=== PATIENT | male | born 1970 | race Caucasian/White ===

== ENCOUNTER 2024-09-21 08:55 | Emergency (ER) | payer MEDICARE, BC ==
--- NOTE | 2024-09-21 09:34 | ED ---
General Adult HPI - General Chief complaint: Abdominal Pain Stated complaint: Chest/abd pain Time Seen by Provider: 09/21/24 09:20 Source: patient, RN notes reviewed Mode of arrival: ambulatory Limitations: no limitations - History of Present Illness Initial comments: 54-year-old with history of MS presents to the emergency department for evaluation of abdominal pain. The patient reports he started experiencing epigastric abdominal pain 3 to 4 days ago. He notes that he has not had a bowel movement in 4 days and has attempted MiraLAX and enemas at home without success. He admits to nausea without vomiting. Denies prior abdominal surgeries. Goyo cummins has a history of multiple sclerosis. - Related Data Home Medications Medication Instructions Recorded Confirmed Aspirin EC [Ecotrin Low Dose] 81 mg PO DAILY 09/21/24 09/21/24 Baclofen [Lioresal] 10 mg PO BID@0900,1500 09/21/24 09/21/24 Baclofen [Lioresal] 20 mg PO HS 09/21/24 09/21/24 Cholecalciferol [Vitamin D3 (125 125 mcg PO DAILY 09/21/24 09/21/24 Mcg = 5000 Iu)] Dalfampridine [Dalfampridine ER] 10 mg PO BID 09/21/24 09/21/24 Dextroamphetamine/Amphetamine 15 mg PO DAILY 09/21/24 09/21/24 [Adderall] Gabapentin [Neurontin] 300 mg PO TID 09/21/24 09/21/24 Mirabegron [Myrbetriq] 50 mg PO DIRECTED 09/21/24 09/21/24 Multivitamins, Thera [Multivitamin 1 tab PO DAILY 09/21/24 09/21/24 (formulary)] Issue-3/Dha/Epa/Fish Oil [Fish Oil 1 cap PO DAILY 09/21/24 09/21/24 1,000 mg Softgel] Vitamin B Complex 1 cap PO DAILY 09/21/24 09/21/24 buPROPion XL [Wellbutrin XL] 150 mg PO DAILY 09/21/24 09/21/24 diazePAM [Valium] 5 mg PO HS PRN 09/21/24 09/21/24 valACYclovir HCL [Valtrex] 500 mg PO DAILY 09/21/24 09/21/24 Allergies Allergy/AdvReac Type Severity Reaction Status Date / Time No Known Allergies Allergy Verified 09/21/24 09:12 Review of Systems ROS Statement: Those systems with pertinent positive or pertinent negative responses have been documented in the HPI. ROS Other: All systems not noted in ROS Statement are negative. Past Medical History Past Medical History: Neurologic Disorder Additional Past Medical History / Comment(s): History of Any Multi-Drug Resistant Organisms: None Reported Past Surgical History: No Surgical Hx Reported Past Psychological History: No Psychological Hx Reported Smoking Status: Never smoker Past Alcohol Use History: None Reported Past Drug Use History: None Reported General Exam - General Exam Comments Initial Comments: Visual Physical Exam Vital signs reviewed General: Well-appearing, nontoxic, no acute distress. Head: Normocephalic, atraumatic Eyes: PERRLA, EOMI ENT: Airway patent Chest: Nonlabored breathing Skin: No visual rash, normal skin tone Neuro: Alert and oriented 3 Musculoskeletal: No gross abnormalities Limitations: no limitations General appearance: alert, in no apparent distress Head exam: Present: atraumatic, normocephalic, normal inspection Eye exam: Present: normal appearance, PERRL, EOMI. Absent: scleral icterus, conjunctival injection, periorbital swelling ENT exam: Present: normal exam, mucous membranes moist Neck exam: Present: normal inspection. Absent: tenderness, meningismus, l ymphadenopathy Respiratory exam: Present: normal lung sounds bilaterally. Absent: respiratory distress, wheezes, rales, rhonchi, stridor Cardiovascular Exam: Present: regular rate, normal rhythm, normal heart sounds. Absent: systolic murmur, diastolic murmur, rubs, gallop, clicks GI/Abdominal exam: Present: tenderness, hypoactive bowel sounds. Absent: distended Extremities exam: Present: normal inspection, full ROM, normal capillary refill. Absent: tenderness, pedal edema, joint swelling, calf tenderness Neurological exam: Present: alert, oriented X3 Psychiatric exam: Present: normal affect, normal mood Skin exam: Present: warm, dry, intact, other (Mild jaundice). Absent: normal color Course Vital Signs 09/21/24 09/21/24 09/21/24 09:10 10:26 14:39 Temperature 98.2 F 98.1 F 98.9 F Pulse Rate 90 81 85 Respiratory 20 18 18 Rate Blood Pressure 135/87 133/82 128/81 O2 Sat by Pulse 99 98 97 Oximetry Medical Decision Making - Medical Decision Making Quick note preformed and electronically signed by ISHMAEL March-C Was pt. sent in by a medical professional or institution (ISHMAEL Gonzales, [employer], urgent care, hospital, or [place] health care facility...) When possible be specific @ -No Did you speak to anyone other than the patient for history (EMS, parent, family, police, friend...)? What history was obtained from this source @ -No Did you review nursing and triage notes (agree or disagree)? Why? @ -I reviewed and agree with nursing and triage notes Were old charts reviewed (outside hosp., previous admission, EMS record, old EKG, old radiological studies, urgent care reports/EKG's, [place] health care facility records)? Report findings @ -No old charts were reviewed Differential Diagnosis (chest pain, altered mental status, abdominal pain women, abdominal pain men, vaginal bleeding, weakness, fever, dyspnea, syncope, headache, dizziness, GI bleed, back pain, seizure, CVA, palpatations, mental health, musculoskeletal)? @ -Differential Abdominal Pain Men: Appendicitis, cholecystitis, diverticulosis, ischemic bowel, pancreatitis, hepatitis, UTI, gastroenteritis, AAA, incarcerated hernia, bowel obstruction, constipation, inflammatory bowel, hepatitis, peptic ulcer disease, splenic infarction, perforated viscus, testicular torsion, this is not meant to be an all-inclusive list EKG interpreted by me (3pts min.). @ -EKG at 1032 shows sinus rhythm rate 66, RI 160, QRS 88, QT/QTc [id number] X-rays interpreted by me (1pt min.). @ -None done CT interpreted by me (1pt min.). @ -CT abdomen pelvis shows Evidence of acute cholecystitis with thickening of the gallbladder wall and hyperemia/thickening of the biliary duct lira which raise concern for ascending cholangitis, no evidence of choledocholithiasis; pancreatic lipomatosis versus fat stranding around the pancreas U/S interpreted by me (1pt. min.). @ -None done What testing was considered but not performed or refused? (CT, X-rays, U/S, labs)? Why? @ -None What meds were considered but not given or refused? Why? @ -None Did you discuss the management of the patient with other professionals (professionals i.e. Dr., PA, [employer], lab, RT, psych nurse, forensic social worker, diesel locomotive firer/fireman, teacher, upscale security officer, case preparer and liner)? Give summary @ -Case discussed with [facility] transfer center, declined the transfer Case was discussed with [facility] transfer center and ER physician Dr. Caldera who is accepting of the transfer. Was smoking cessation discussed for >3mins.? @ -No Was critical care preformed (if so, how long)? @ -No Were there social determinants of health that impacted care today? How? (Homelessness, low income, unemployed, alcoholism, drug addiction, transportation, low edu. Level, literacy, decrease access to med. care, intermediate, rehab)? @ -No Was there de-escalation of care discussed even if they declined (Discuss DNR or withdrawal of care, Hospice)? DNR status @ -No What co-morbidities impacted this encounter? (DM, HTN, Smoking, COPD, CAD, Cancer, CVA, ARF, Chemo, Hep., AIDS, mental health diagnosis, sleep apnea, morbid obesity)? @ -None Was patient admitted / discharged? Hospital course, mention meds given and route, prescriptions, significant lab abnormalities, going to OR and other pertinent info. @ -Transferred. This is a 54-year-old male presenting to the emergency department today for abdominal pain that has been going on for 3 to 4 days. Patient reports associated nausea without vomiting. Laboratory studies were obtained significant for leukocytosis of 11.7. CMP shows elevated bilirubin At 5.4, transaminitis with AST and ALT in the 700s. Amylase and lipase signif icantly elevated as well. Patient underwent a CT scan of the abdomen and pelvis with IV contrast revealing findings concerning for cholecystitis with thickening of the gallbladder wall and thickening of the biliary duct lira concerning for ascending cholangitis, there is also pancreatic lipomatosis versus fat stranding changes around the pancreas. Patient received 2 L of IV fluids and started on maintenance fluids at 100 cc/h. He also received Zosyn and vancomycin. Patient will be transferred to a facility with GI services as we do not have this available at this time. Patient requested transfer to [facility] or [facility]. [facility] was contacted and declined the transfer therefore [facility] was contacted and patient was accepted as an ER to ER transfer by Dr. Caldera. Patient hemodynamically stable at the time of transfer. Case was discussed with my attending physician, Dr. Wallace. Undiagnosed new problem with uncertain prognosis? @ -No Drug Therapy requiring intensive monitoring for toxicity (Heparin, Nitro, Insulin, Cardizem)? @ -No Were any procedures done? @ -No Diagnosis/symptom? @ -Ascending cholangitis, pancreatitis Acute, or Chronic, or Acute on Chronic? @ -Acute Uncomplicated (without systemic symptoms) or Complicated (systemic symptoms)? @ -Complicated Side effects of treatment? @ -No Exacerbation, Progression, or Severe Exacerbation? @ -No Poses a threat to life or bodily function? How? (Chest pain, [place], [place], pneumonia, PE, COPD, DKA, ARF, appy, cholecystitis, CVA, Diverticulitis, Homicidal, Suicidal, threat to staff... and all critical care pts) @ -Moderate - Lab Data Result diagrams: 09/21/24 10:58 09/21/24 10:58 Lab Results 09/21/24 09/21/24 09/21/24 Range/Units 10:58 10:58 10:58 WBC 11.7 H (3.8-10.6) k/uL RBC 5.55 (4.30-5.90) m/uL Hgb 17.0 (13.0-17.5) gm/dL Hct 50.0 (39.0-53.0) % MCV 90.1 (80.0-100.0) fL MCH 30.6 (25.0-35.0) pg MCHC 34.0 (31.0-37.0) g/dL RDW 12.9 (11.5-15.5) % Plt Count 305 (150-450) k/uL MPV 6.7 Neutrophils % 84 % Lymphocytes % 4 % Monocytes % 9 % Eosinophils % 2 % Basophils % 0 % Neutrophils # 9.8 H (1.3-7.7) k/uL Lymphocytes # 0.5 L (1.0-4.8) k/uL Monocytes # 1.0 (0-1.0) k/uL Eosinophils # 0.2 (0-0.7) k/uL Basophils # 0.0 (0-0.2) k/uL Sodium 139 (137-145) mmol/L Potassium 4.2 (3.5-5.1) mmol/L Chloride 99 (98-107) mmol/L Carbon Dioxide 32 H (22-30) mmol/L Anion Gap 8 mmol/L BUN 10 (9-20) mg/dL Creatinine 0.88 (0.66-1.25) mg/dL Est GFR (CKD-EPI)AfAm >90 (>60 ml/min/1.73 sqM) Est GFR (CKD-EPI)NonAf >90 (>60 ml/min/1.73 sqM) Glucose 136 H (74-99) mg/dL Plasma Lactic Acid Bandar 1.0 (0.7-2.0) mmol/L Calcium 9.3 (8.4-10.2) mg/dL Total Bilirubin 5.4 H (0.2-1.3) mg/dL Conjugated Bilirubin (0.0-0.3) mg/dL Unconjugated Bilirubin (0.0-1.1) mg/dL Delta Bilirubin (0.0-0.2) mg/dL AST 792 H (17-59) U/L ALT 727 H (4-49) U/L Alkaline Phosphatase 234 H (38-126) U/L Total Protein 7.0 (6.3-8.2) g/dL Albumin 4.5 (3.5-5.0) g/dL Amylase 2998 H* (30-110) U/L Lipase >46564 H (23-300) U/L 09/21/24 Range/Units 13:05 WBC (3.8-10.6) k/uL RBC (4.30-5.90) m/uL Hgb (13.0-17.5) gm/dL Hct (39.0-53.0) % MCV (80.0-100.0) fL MCH (25.0-35.0) pg MCHC (31.0-37.0) g/dL RDW (11.5-15.5) % Plt Count (150-450) k/uL MPV Neutrophils % % Lymphocytes % % Monocytes % % Eosinophils % % Basophils % % Neutrophils # (1.3-7.7) k/uL Lymphocytes # (1.0-4.8) k/uL Monocytes # (0-1.0) k/uL Eosinophils # (0-0.7) k/uL Basophils # (0-0.2) k/uL Sodium (137-145) mmol/L Potassium (3.5-5.1) mmol/L Chloride (98-107) mmol/L Carbon Dioxide (22-30) mmol/L Anion Gap mmol/L BUN (9-20) mg/dL Creatinine (0.66-1.25) mg/dL Est GFR (CKD-EPI)AfAm (>60 ml/min/1.73 sqM) Est GFR (CKD-EPI)NonAf (>60 ml/min/1.73 sqM) Glucose (74-99) mg/dL Plasma Lactic Acid Bandar (0.7-2.0) mmol/L Calcium (8.4-10.2) mg/dL Total Bilirubin 5.3 H (0.2-1.3) mg/dL Conjugated Bilirubin 1.4 H (0.0-0.3) mg/dL Unconjugated Bilirubin 2.9 H (0.0-1.1) mg/dL Delta Bilirubin 1.0 H (0.0-0.2) mg/dL AST (17-59) U/L ALT (4-49) U/L Alkaline Phosphatase (38-126) U/L Total Protein (6.3-8.2) g/dL Albumin (3.5-5.0) g/dL Amylase (30-110) U/L Lipase (23-300) U/L Disposition Clinical Impression: Ascending cholangitis, Cholecystitis with cholangitis, Pancreatitis Disposition: OTHER INSTITUTION NOT DEFINED Condition: Stable Is patient prescribed a controlled substance at d/c from ED?: No Referrals: Tigre Vanessa MD [Primary Care Provider] - 1-2 days - Out of Hospital Transfer - Req. Specs Out of Hospital Transfer - Requested Specifics: Other Emergency Center ([facility])
[2024-09-21 10:27] VITALS: RESP 18
[2024-09-21] MEDS: SODIUM CHLORIDE 0.9% 1,000 ML IV ONE ×2 (10:59→13:14)
[2024-09-21] MEDS: KETOROLAC 15 MG/ML 1 ML VIAL IVP STA (11:00)
[2024-09-21] MEDS: ONDANSETRON 4 MG/2 ML VIAL IVP STA ×2 (11:01→15:58)
[2024-09-21 11:07] LABS: Basophils % (A) 0 %; Eosinophils # (A) 0.2 k/uL (0-0.7); Eosinophils % (A) 2 %; Lymphocytes # (A) 0.5 k/uL (1.0-4.8); Lymphocytes % (A) 4 %; MCH 30.6 pg (25.0-35.0); MCV 90.1 fL (80.0-100.0); Mean Platelet Volume 6.7; Monocytes % (A) 9 %; Neutrophils # (A) 9.8 k/uL (1.3-7.7); Neutrophils % (A) 84 %; Platelet Count 305 k/uL (150-450); RBC 5.55 m/uL (4.30-5.90); RDW 12.9 % (11.5-15.5); WBC 11.7 k/uL (3.8-10.6)
[2024-09-21 11:43] LABS: ALT 727 U/L (4-49); African American GFR (CKD) >90 (>60 ml/min/1.73 sqM); Albumin 4.5 g/dL (3.5-5.0); Alkaline Phosphatase 234 U/L (38-126); Anion Gap 8 mmol/L; Blood Urea Nitrogen 10 mg/dL (9-20); Calcium 9.3 mg/dL (8.4-10.2); Carbon Dioxide 32 mmol/L (22-30); Chloride 99 mmol/L (98-107); Glucose 136 mg/dL (74-99); Non-African American GFR(CKD) >90 (>60 ml/min/1.73 sqM); Potassium 4.2 mmol/L (3.5-5.1); Sodium 139 mmol/L (137-145); Total Bilirubin 5.4 mg/dL (0.2-1.3)
--- NOTE | 2024-09-21 12:14 | CT ---
EXAMINATION TYPE: CT abdomen pelvis w con DATE OF EXAM: 09/21/2024 11:21 AM COMPARISON: None. CLINICAL INDICATION: Male, 54 years old with history of abdominal pain; abd pain TECHNIQUE: Axial CT abdomen pelvis w con;Sagittal and coronal reformats were created on a separate w orkstation. Contrast used:100 mL of Isovue 300 with IV Contrast, (none if empty) Oral contrast used: without Oral Contrast (none if empty) CT DLP: 965 mGycm, Automated exposure control for dose reduction was used. FINDINGS: LOWER CHEST: Unremarkable ABDOMEN LIVER: Simple appearing hepatic cyst in the gallbladder fossa. GALLBLADDER AND BILE DUCTS: Mildly distended gallbladder with hyperemia and mild circumferential wall thickening. Thickening of the endothelium of the extrahepatic biliary system. PANCREAS: Mild lipomatosis of the pancreatic head and uncinate process. SPLEEN: Unremarkable. ADRENAL GLANDS: Unremarkable. KIDNEYS AND URETERS: No evidence of hydronephrosis or renal calculus. The ureters are unremarkable. PELVIS BLADDER: No evidence for wall thickening or mass given limitations of exam. REPRODUCTIVE: Unremarkable. ABDOMEN & PELVIS STOMACH AND BOWEL: No evidence of bowel obstruction. PERITONEUM/RETROPERITONEUM: No evidence of pneumoperitoneum or free fluid. VASCULATURE: No evidence of aortic aneurysm. MUSCULOSKELETAL: No acute osseous abnormalities LYMPH NODES: No gross evidence for lymphadenopathy. SOFT TISSUE/ABDOMINAL WALL: Unremarkable IMPRESSION: 1. Multiple findings in the right upper quadrant including evidence of cholecystitis with thickening of the gallbladder lira as well as hyperemia/thickening of the biliary duct lira which would raise the concern for a ascending cholangitis. No evidence for choledocholithiasis. Consider MRCP if there remains clinical concern for choledocholithiasis. 2. Pancreatic lipomatosis versus fat stranding changes around the pancreas correlate with serum lipa se excluded component of pancreatitis. [facility], , 09/21/2024 12:11 PM
[2024-09-21 12:33] LABS: AST 792 U/L (17-59); Amylase 2998 U/L (30-110); Lipase >20000 U/L (23-300)
[2024-09-21] MEDS ORDERED: VANCOMYCIN IV PER PHARMACY 1 EACH MISC MISCELLANE PRN (12:40)
[2024-09-21] MEDS: PIPERACILLIN-TAZOBACTAM 4.5 GM in SODIUM CHLORIDE 0.9% 100 ML IVPB STA (13:21)
[2024-09-21 14:02] LABS: Bilirubin, Conjugated 1.4 mg/dL (0.0-0.3); Bilirubin,Unconjugated 2.9 mg/dL (0.0-1.1); Total Bilirubin 5.3 mg/dL (0.2-1.3)
[2024-09-21] MEDS: SODIUM CHLORIDE 0.9% 1,000 ML IV SCH (14:44)
[2024-09-21] MEDS: VANCOMYCIN 1,500 MG in SODIUM CHLORIDE 0.9% 500 ML 500 ML IVPB STA (15:51)
[2024-09-21 16:04] VITALS: BP 122/65; PULSE 82; TEMP 98.6
[2024-09-22] MEDS ORDERED: VANCOMYCIN 1,500 MG in SODIUM CHLORIDE 0.9% 500 ML 500 ML IVPB SCH (03:00)
== END 2024-09-21 16:04 | disposition other institution (70) ==
LOC: EC 08:55
DX: K85.90 Acute pancreatitis without necrosis or infection, unspecified (principal); K83.09 Other cholangitis
CPT/HCPCS: 36415; 93005; 80053; 82150; 82248; 83605; 83690; 85025; 87040; 74177; 99285; 96365; 96366; 96375; 96376; 96361; J2543; J3370; J2405; J1885; Q9967